=== PATIENT | female | born 2000 ===

== ENCOUNTER 2018-05-19 00:38 | Emergency (ER) | payer SELFPAY ==
[2018-05-19 00:55] VITALS: BMI 26.4
[2018-05-19 00:58] VITALS: RESP 18; O2SAT 100
[2018-05-19 02:34] LABS: BASO # 0.1 K/uL (0.0-0.2); BASO % 0.6 % (0.0-2.0); EOS # 0.1 K/uL (0.0-0.7); EOS % 0.7 % (0.0-4.0); HEMOGLOBIN 14.1 g/dL (12.0-16.0); LYMPH # 4.8 K/uL (1.0-4.3); LYMPH % 32.3 % (20.0-40.0); MEAN CELL VOLUME 91.9 fl (81.0-99.0); MEAN CORPUSCULAR HEMOGLOBIN 30.5 pg (27.0-31.0); MEAN CORPUSCULAR HGB CONC 33.3 g/dL (33.0-37.0); MEAN PLATELET VOLUME 9.2 fl (7.2-11.7); MONO # 1.1 K/uL (0.0-0.8); MONO % 7.1 % (0.0-10.0); NEUT # 8.8 K/uL (1.8-7.0); NEUT % 59.3 % (50.0-75.0); NRBC % 0.3 % (0.0-0.0); RBC 4.63 Mil/uL (3.80-5.20); WHITE BLOOD COUNT 14.9 K/uL (4.8-10.8)
[2018-05-19 02:36] LABS: SQUAMOUS EPITHIAL 1 /hpf (0-5); URINE BACTERIA RARE (<OCC); URINE BILIRUBIN NEGATIVE (NEGATIVE); URINE BLOOD NEGATIVE (NEGATIVE); URINE CLARITY CLEAR (Clear); URINE COLOR YELLOW (YELLOW); URINE GLUCOSE (UA) NEG (NEGATIVE); URINE LEUKOCYTE ESTERASE NEG Leu/uL (Negative); URINE PROTEIN NEGATIVE (NEGATIVE); URINE UROBILINOGEN 0.2-1.0 mg/dL (0.2-1.0)
[2018-05-19] MEDS ORDERED: Sodium Chloride 0.9% 1,000 ML IV STA (02:41)
[2018-05-19 03:56] LABS: ALB/GLOB RATIO 1.4 (1.0-2.1); ALBUMIN 4.4 g/dL (3.5-5.0); ALT/SGPT 22 U/L (9-52); AST/SGOT 20 U/L (14-36); BLOOD UREA NITROGEN 11 mg/dl (7-17); CALCIUM 9.4 mg/dL (8.4-10.2); GFR NON-AFRICAN AMERICAN > 60
--- NOTE | 2018-05-19 04:09 | ED PDOC ---
HPI: Abdomen Time Seen by Provider: 05/19/18 01:23 Chief Complaint (Nursing): Abdominal Pain Chief Complaint (Provider): Abdominal Pain History Per: Patient History/Exam Limitations: no limitations Onset/Duration Of Symptoms: Days (3 weeks) Current Symptoms Are (Timing): Still Present Quality Of Discomfort: "Pain" Associated Symptoms: Fever, Nausea, Vomiting. denies: Diarrhea Exacerbating Factors: Movement Additional Complaint(s): 18 year old female presents to the ED complaining of vomiting onset for 3 weeks. She also reports of worsening RLQ pain and tonight the pain became sev ere associated with nausea and vomiting. She saw her primary care provider, Dr. Hill who referred her to the ED for further workup. The pain also worsens with movement and activity. Otherwise, patient denies diarrhea. PMD: [place] Past Medical History Reviewed: Historical Data, Nursing Documentation, Vital Signs Vital Signs: Last Vital Signs Temp 98.5 F 05/19/18 00:56 Pulse 75 05/19/18 00:56 Resp 18 05/19/18 00:56 BP 132/69 05/19/18 00:56 Pulse Ox 100 05/19/18 00:56 - Medical History PMH: No Chronic Diseases - Surgical History Surgical History: No Surg Hx - Family History Family History: States: No Known Family Hx - Social History Current smoker - smoking cessation education provided: No Alcohol: None Drugs: Denies - Home Medications Home Medications: Ambulatory Orders Medication Instructions Recorded Naproxen [Naprosyn] 500 mg PO Q12 #14 tab 05/19/18 Ondansetron ODT [Zofran ODT] 4 mg PO Q6 PRN #8 odt 05/19/18 - Allergies Allergies/Adverse Reactions: Allergies Allergy/AdvReac Type Severity Reaction Status Date / Time No Known Allergies Allergy Verified 05/19/18 00:55 Review of Systems ROS Statement: Except As Marked, All Systems Reviewed And Found Negative Constitutional: Positive for: Fever Gastrointestinal: Positive for: Nausea, Vomiting, Abdominal Pain. Negative for: Diarrhea Physical Exam - Reviewed Nursing Documentation Reviewed: Yes Vital Signs Reviewed: Yes - Physical Exam Appears: Positive for: Uncomfortable Head Exam: Positive for: ATRAUMATIC, NORMAL INSPECTION, NORMOCEPHALIC Skin: Positive for: Normal Color, Warm, Dry. Negative for: Rash Eye Exam: Positive for: EOMI, Normal appearance, PERRL ENT: Positive for: Normal ENT Inspection Neck: Positive for: Normal, Painless ROM, Supple. Negative for: Decreased ROM Cardiovascular/Chest: Positive for: Regular Rate, Rhythm. Negative for: Murmur Respiratory: Positive for: Normal Breath Sounds. Negative for: Respiratory Distress Gastrointestinal/Abdominal: Positive for: Tenderness (RLQ), Other (psoas sign on abdomen ) Back: Positive for: Normal Inspection Extremity: Positive for: Normal ROM. Negative for: Tenderness, Pedal Edema, Deformity Neurological/Psych: Positive for: Awake, Alert, Normal Tone, Oriented (x3) - Laboratory Results Result Diagrams: 05/19/18 02:15 05/19/18 03:12 Lab Results: Total Bilirubin 0.2 mg/dl (0.2-1.3) 05/19/18 03:12 AST 20 U/L (14-36) 05/19/18 03:12 ALT 22 U/L (9-52) 05/19/18 03:12 Alkaline Phosphatase 66 U/L (38-126) 05/19/18 03:12 Total Protein 7.7 G/DL (6.3-8.2) 05/19/18 03:12 Albumin 4.4 g/dL (3.5-5.0) 05/19/18 03:12 Globulin 3.3 gm/dL (2.2-3.9) 05/19/18 03:12 Albumin/Globulin Ratio 1.4 (1.0-2.1) 05/19/18 03:12 Urine Color Yellow (YELLOW) 05/19/18 02:15 Urine Clarity Clear (Clear) 05/19/18 02:15 Urine pH 6.0 (5.0-8.0) 05/19/18 02:15 Ur Specific [place] 1.013 (1.003-1.030) 05/19/18 02:15 Urine Protein Negative mg/dL (NEGATIVE) 05/19/18 02:15 Urine Glucose (UA) Neg mg/dL (NEGATIVE) 05/19/18 02:15 Urine Ketones Negative mg/dL (NEGATIVE) 05/19/18 02:15 Urine Blood Negative (NEGATIVE) 05/19/18 02:15 Urine Nitrate Negative (NEGATIVE) 05/19/18 02:15 Urine Bilirubin Negative (NEGATIVE) 05/19/18 02:15 Urine Urobilinogen 0.2-1.0 mg/dL (0.2-1.0) 05/19/18 02:15 Ur Leukocyte Esterase Neg Araceli/uL (Negative) 05/19/18 02:15 Urine RBC (Auto) 1 /hpf (0-3) 05/19/18 02:15 Urine Microscopic WBC 1 /hpf (0-5) 05/19/18 02:15 Ur Squamous Epith Cells 1 /hpf (0-5) 05/19/18 02:15 Urine Bacteria Rare (<OCC) 05/19/18 02:15 - ECG O2 Sat by Pulse Oximetry: 100 (RA) Pulse Ox Interpretation: Normal Medical Decision Making Medical Decision Making: Time: 0154 Impression: 18 year old female presenting with abdominal pain, nausea and vomiting Plan: ABD Pelvis PO & IV contrast CMP Lipase ED urine dipstick CBC w/ differential Normal saline 1000 mls/hr Toradol 30mg Zofran 4mg Heplock insertion UA Transvaginal US Reevaluation 0521: Ultrasound of the pelvis. Indication: Right lower quadrant pain. Technique: Real-time ultrasound images were obtained. Findings: Uterus measures 7.4x3.4x4.6 cm. Anteverted uterus. The endometrium is normal in thickness measuring 8.8 mm. Normal right ovary. Left ovarian simple cyst measuring 1.6 cm. Impression: Left ovarian simple, probably functional cyst. No evidence of ovarian torsion. 0530: CT SCAN OF THE ABDOMEN AND PELVIS WITH CONTRAST. CLINICAL HISTORY: Right lower quadrant pain. TECHNIQUE: Multiple axial and coronal CT images were obtained through the abdomen and pelvis after administration of intravenous contrast material. COMMENTS: 1.9 cm left ovarian cyst/follicle. Moderate amount of fecal residue is noted in the large bowels. Mild diffuse thickening of the bladder. The liver is of uniform attenuation without mass or defect. There is no intra or extrahepatic biliary ductal dilatation. The spleen is normal. The gallbladder is within normal limits. The pancreas is of normal contour and attenuation characteristics. There is no evidence of adrenal mass. Both kidneys demonstrate prompt and equal nephrograms. The kidneys are normal in size, shape and configuration. There is no evidence of renal or ureteral mass. No renal or ureteral calculi are identified. There is no hydroureter or hydronephrosis. No evidence for appendicitis. There is no bowel wall thickening. No evidence for small or large bowel obstruction. There is no evidence of abdominal ascites or lymphadenopathy. There is no evidence of intrinsic or extrinsic bladder mass. There is no pelvic ascites or lymphadenopathy. Images of the lung bases show no evidence of pleural or parenchymal mass. There are no pleural effusions. The bony structures are free of lytic or blastic lesions. IMPRESSION: 1.9 cm left ovarian cyst/follicle. Moderate amount of fecal residue is noted in the large bowels. Mild diffuse thickening of the bladder. 0605: Patient presents improvement is symptoms and diagnosed with ovarian cyst Upon provider evaluation patient is medically stable, and requires no further treatment in the ED at this time. Patient will be discharged home. Counseling was provided and all questions were answered regarding diagnosis. There is agreement to discharge plan. Return if symptoms persist or worsen. Scribe Attestation: Documented by Christiane Petersen, acting as a scribe for Flip Whiteside MD Provider Scribe Attestation: All medical record entries made by the Scribe were at my direction and personally dictated by me. I have reviewed the chart and agree that the record accurately reflects my personal performance of the history, physical exam, medical decision making, and the department course for this patient. I have also personally directed, reviewed, and agree with the discharge instructions and disposition. Disposition - Clinical Impression Clinical Impression: Ovarian cyst - Patient ED Disposition Is Patient to be Admitted: No - Disposition Disposition: Routine/Home Disposition Time: 06:05 Condition: IMPROVED Prescriptions: Naproxen [Naprosyn] 500 mg PO Q12 #14 tab Ondansetron ODT [Zofran ODT] 4 mg PO Q6 PRN #8 odt PRN Reason: Nausea/Vomiting Instructions: Ovarian Cysts Forms: [employer] (Malay)
[2018-05-19] MEDS ORDERED: Sodium Chloride 0.9% 50 ML IV ONE (04:17)
[2018-05-19] MEDS ORDERED: Iohexol 300 100 ML IJ ONE (04:17)
[2018-05-19 06:17] VITALS: BP 114/52; PULSE 72; TEMP 98.3
--- NOTE | 2018-05-19 13:32 | US ---
Date of service: 05/19/2018 HISTORY: RLQ pain LMP 04/30/2018. COMPARISON: None available. TECHNIQUE: Transabdominal only. Real-time technique with 2D, duplex and color Doppler FINDINGS: UTERUS: Measures 3.4 x 4.6 x 7.4 cm. Normal in size and appearance. No fibroid or other mass lesion seen. ENDOMETRIUM: Measures 8.8 mm in diameter. No ultrasound findings to suggest gestational sac, fluid, debris, mass or polyp or other pathologic process within the endometrium. CERVIX: No cervical abnormality identified. RIGHT OVARY: Measures 1.9 x 2.3 x 3.3 cm. No solid mass. Normal flow. LEFT OVARY: Measures 2.8 x 3.3 x 3.7 cm. No solid mass. Normal flow. Small simple cyst 9 x 11 mm. FREE FLUID: No significant free fluid noted. OTHER FINDINGS: None. IMPRESSION: Unremarkable pelvic ultrasound. Negative study for torsion or other acute/significant pathologic process. Incidental finding(s): Simple cyst left adnexa. Concordant findings (preliminary report) provided by [facility].
--- NOTE | 2018-05-19 15:43 | CT ---
Date of service: 05/19/2018 PROCEDURE: CT Abdomen and Pelvis with contrast HISTORY: RLQ pain COMPARISON: May 19, 2018 pelvic ultrasound TECHNIQUE: Intravenous contrast dose: 80 cc Omnipaque 300. Radiation dose: Total exam DLP = 238.70 mGy-cm. This CT exam was performed using one or more of the following dose reduction techniques: Automated exposure control, adjustment of the mA and/or kV according to patient size, and/or use of iterative reconstruction technique. FINDINGS: LOWER THORAX: Unremarkable. LIVER: Hepatic steatosis. No focal masses. No intrahepatic bile duct dilatation or perihepatic ascites. Hyperechoic focus posterior segment right hepatic lobe 12 mm likely flash hemangioma an incidental finding. GALLBLADDER AND BILE DUCTS: Unremarkable. PANCREAS: Unremarkable. No gross lesion or ductal dilatation. SPLEEN: Unremarkable. ADRENALS: Unremarkable. No mass. KIDNEYS AND URETERS: Unremarkable. No hydronephrosis. No solid mass. VASCULATURE: Unremarkable. No aortic aneurysm. No atherosclerotic calcification or mural plaque present. BOWEL: Constipation without fecal impaction or obstruction. APPENDIX: No abnormalities to suggest acute appendicitis. No right lower quadrant inflammatory processes identified. PERITONEUM: Unremarkable. No free fluid. No free air. LYMPH NODES: Unremarkable. No enlarged lymph nodes. BLADDER: Unremarkable. REPRODUCTIVE: Slightly deformed contrast-enhancing cyst left adnexa. Similar findings identified on concurrent pelvic ultrasound. BONES: No acute fracture. OTHER FINDINGS: None. IMPRESSION: No significant or acute findings to account for/ related to the clinical presentation. Additional benign and/or incidental findings described above. Concordant findings (preliminary report) provided by [facility].
== END 2018-05-19 06:39 | disposition home or self-care (01) ==
LOC: H.ER 00:38
DX: N83.202 Unspecified ovarian cyst, left side (principal)
CPT/HCPCS: 74177; 76856; 80053; 81003; 81025; 85025; 96360; 99284; J1885; J2405; J7030; Q9967